=== PATIENT | female | born 1995 | race Native Hawaiian/Other Pacific Islander ===

== ENCOUNTER → 2018-11-25 16:30 | Outpatient (CLI) | payer OTHER, SELFPAY ==
[2018-11-25 17:06] LABS: Add Manual Diff / Slide Review NO; Basophils Absolute Auto 100 /uL (0-100); Basophils Percent Auto 0.5 % (0-2); Eosinophils Absolute Auto 400 /uL (0-450); Hematocrit 43.6 % (36-46); Hemoglobin 14.2 g/dL (12.0-16.0); Lymphocytes Absolute Auto 2400 /uL (1100-4500); Lymphocytes Percent Auto 20.3 % (25-40); Mean Corpuscular HGB Conc 32.6 % (30-36); Mean Corpuscular Hemoglobin 28.9 PG (26-34); Mean Corpuscular Volume 88.6 fL (80-100); Monocytes Absolute Auto 900 /uL (0-900); Monocytes Percent Auto 7.4 % (3-14); Neutrophils Absolute Auto 8100 /uL (1500-7000); Neutrophils Percent Auto 68.8 % (50-75); Platelet Count 278 X10^3/uL (150-400); Red Blood Cell Count 4.92 X10^6/uL (4.0-5.2); Red Cell Distribution Width 12.6 % (11.6-14.8); White Blood Cell Count 11.8 X10^3/uL (4.5-11.0)
== END ==
PROVIDERS: Visit Provider Physician Assistant
DX: N92.6 Irregular menstruation, unspecified (principal)
CPT/HCPCS: 36415; 85025

== ENCOUNTER → 2018-11-26 08:20 | Outpatient (CLI) | payer OTHER, SELFPAY ==
--- NOTE | 2018-11-26 08:21 | DI.US.S_ITS ---
PROCEDURE: US PELVIC COMPLETE INDICATIONS: DUB TECHNIQUE: Real-time scanning was performed of the pelvic organs, with image documentation. Additional endovaginal scanning was necessary due to incomplete visualization of the adnexal and endometrial structures by transabdominal scanning. COMPARISON: None. FINDINGS: Transabdominal scanning: Limited scanning through the kidneys shows no hydronephrosis. There is a small amount of free pelvic fluid with low level internal echo adjacent to the right ovary. Endovaginal scanning: Uterus: Uterus is normal in size at 7.3 x 3.9 x 5.4 cm. The endometrium measures 8.2 mm in combined thickness. Ovaries: Right ovary measures 2.6 x 2.6 x 2.0 cm. Left ovary measures 2.8 x 2.0 x 1.7 cm. A 1.8 cm simple cyst is noted in the right ovary. IMPRESSION: 1. No ultrasound findings to explain dysfunctional uterine bleeding. 2. A small amount of free pelvic fluid with internal echo adjacent to the right ovary could be secondary to a ruptured hemorrhagic cyst. 3. Simple cyst in the right ovary. Dictated by: Yaw Garcia M.D. on 11/26/2018 at 9:55 Approved by: Yaw Garcia M.D. on 11/26/2018 at 10:01
== END ==
PROVIDERS: Visit Provider Physician Assistant
DX: N92.6 Irregular menstruation, unspecified (principal); N83.291 Other ovarian cyst, right side
CPT/HCPCS: 76830; 76856

== ENCOUNTER → 2018-12-19 11:01 | Outpatient (CLI) | payer OTHER, SELFPAY ==
[2018-12-19 13:15] LABS: Glucose 94 mg/dL (70-100)
[2018-12-19 14:57] LABS: Follicle Stimulating Hormone 2.62 mIU/mL
[2018-12-19 15:30] LABS: Luteinizing Hormone 5.33 mIU/mL
[2018-12-21 15:59] LABS: Insulin Level Total 5.6 uIU/mL (2.0-19.6)
== END ==
PROVIDERS: Visit Provider Obstetrics & Gynecology
DX: E28.2 Polycystic ovarian syndrome (principal)
CPT/HCPCS: 36415; 82947; 83001; 83002; 83525